=== PATIENT | male | born 1995 | race Caucasian/White ===

== ENCOUNTER 2018-05-01 04:29 | Observation (INO) | payer OTHER ==
[~2018-05-01] VITALS: Ht 175.3 cm; Wt 81.6 kg
[2018-05-01 04:33] VITALS: Ht 175.3 cm; Wt 81.6 kg
[2018-05-01 04:40] LABS: BASOPHILS 0.2 % (0-2); EOSINOPHILS 1.1 % (0-7); HEMATOCRIT 42.4 % (42.0-54.0); HEMOGLOBIN 14.9 g/dL (13.5-17.5); IMMATURE GRANULOCYTES 0.3 % (0-5); LYMPHOCYTES 21.2 % (15-50); MCH 32.3 pg (26.0-34.0); MCHC 35.1 g/dL (31.0-37.0); MEAN PLATELET VOLUME 9.5 fL (7.4-10.4); MONOCYTES 8.1 % (2-11); NEUTROPHILS 69.1 % (40-80); PLATELET COUNT 284 10x3/uL (130-400); RBC 4.61 10x6/uL (4.20-6.10); RDW 13.5 % (11.5-14.5); WBC 17.8 10x3/uL (4.8-10.8)
[2018-05-01 05:10] LABS: ALKALINE PHOSPHATASE 74 U/L (46-116); ALT (SGPT) 71 U/L (10-68); CALC OSMOLALITY 287 mosm/kg (275-300); CALCIUM 8.4 mg/dL (8.5-10.1); CARBON DIOXIDE 24.1 mmol/L (21.0-32.0); CHLORIDE - SERUM 106 mmol/L (98-107); CREATININE - SERUM 0.9 mg/dL (0.6-1.3); GLUCOSE 153 mg/dL (74-106); PROTEIN - SERUM 7.3 g/dL (6.4-8.2); SODIUM 143 mmol/L (136-145); UREA NITROGEN 12 mg/dL (7-18); eGFR NON AFRICAN AMERICAN > 90 mL/min (90-120)
[2018-05-01 05:17] LABS: AMYLASE - SERUM 59 U/L (25-115); LIPASE 84 U/L (73-393); TROPONIN-I < 0.017 ng/mL (0.000-0.060)
[2018-05-01 05:18] LABS: APPEARANCE CLEAR (CLEAR); BILIRUBIN NEGATIVE (NEGATIVE); COLOR YELLOW (YELLOW); GLUCOSE NEGATIVE (NEGATIVE); KETONE NEGATIVE (NEGATIVE); NITRITE NEGATIVE (NEGATIVE); PROTEIN NEGATIVE (NEGATIVE); UROBILINOGEN NORMAL (NORMAL)
--- NOTE | 2018-05-01 05:58 | NUR ---
PT RESTING ON BED WITH EYES CLOSED. PT SPOUSE PROVIDED PHONE NUMBER FOR CONTACT FOR TRANSPORTATION HOME, [place]: [phone]
--- NOTE | 2018-05-01 06:51 | NUR ---
PT RETURNED FROM CT VIA STRETCHER. PT PROVIDED WARM BLANKET.
[2018-05-01 08:30] VITALS: BP 116/78
[2018-05-01 09:00] VITALS: BP 126/76
--- NOTE | 2018-05-01 09:41 | NUR ---
DR. RITCHIE AT BEDSIDE AT THIS TIME.
[2018-05-01 10:00] VITALS: BP 119/72
[2018-05-01 11:05] VITALS: BP 124/73
--- NOTE | 2018-05-01 12:14 | NUR ---
PT BELONGINGS PLACED IN BELONGING BAG AT THIS TIME. OR TRANSPORTER PRESENT WELL SCALER
[2018-05-01 12:18] VITALS: BP 132/64
[2018-05-01] MEDS ORDERED: HYDROCODON-ACE1 EAC7 PO (14:38)
--- NOTE | 2018-05-01 15:23 | NUR ---
PATIENT RATES PAIN AT 0/10 SCALE. WILL CONTINUE TO MONITOR.
--- NOTE | 2018-05-01 17:19 | NUR ---
1700 DR. RITCHIE PAGED RETURNED CALL OKAYS RELEASE.
== END 2018-05-01 17:10 | disposition home or self-care (01) ==
LOC: D.ER 04:29 → D.EDHOLD 08:21 → OBSVTIME 08:21 → D.EDHOLD 08:21 → D.SDCHOLD 16:32
PROVIDERS: Family Medicine; ADMIT Surgery; ATTEND Surgery
DX: K35.33 Acute appendicitis with perforation, localized peritonitis, and gangrene, with abscess (principal)